=== PATIENT | male | born 1995 | race African-American/Black ===

== ENCOUNTER 2020-08-22 18:07 | Emergency (ER) | payer OTHER ==
[~2020-08-22] VITALS: Ht 185.4 cm; Wt 69.8 kg
[2020-08-22] MEDS ORDERED: MOBIC7.5 MG PO (20:34)
[2020-08-22] MEDS ORDERED: PENICILLIN V P500 MG PO (20:34)
[2020-08-22 20:43] VITALS: BP 113/67
[2020-08-23] MEDS ORDERED: PENICILLIN V P500 MG PO (11:44)
== END 2020-08-22 20:45 | disposition home or self-care (01) ==
LOC: ER 18:07
PROC: 0C96XZZ Drainage of Lower Gingiva, External Approach (ICD-10-PCS; principal; 2020-08-22)
DX: K04.7 Periapical abscess without sinus (principal); R51 Headache